=== PATIENT | female | born 1985 ===

== ENCOUNTER 2022-01-02 05:41 | Day surgery (SDC) | payer BC ==
[~2022-01-02] VITALS: Ht 152.4 cm; Wt 51.7 kg
[2022-01-02 06:07] VITALS: BP 108/52; PULSE 72; TEMP 98.6
[2022-01-02] MEDS ORDERED: NITRO-BID22 TOP (06:21)
[2022-01-02] MEDS ORDERED: MOBIC15 MG PO (06:21)
[2022-01-02] MEDS ORDERED: FLEXERIL 1010 MG/TAB PO (06:21)
[2022-01-02] MEDS ORDERED: TRIAMC 0.1 454 TOP (06:21)
[2022-01-02 08:10] VITALS: BP 102/57; PULSE 70; TEMP 97.1
[2022-01-02 08:25] VITALS: BP 100/59; PULSE 65
[2022-01-02 08:40] VITALS: BP 104/64; PULSE 66
--- NOTE | 2022-01-02 09:12 | NUR ---
0810: Patient arrived back into [facility] from [facility]. Patient is alert and oriented. Vital signs stable. Report received from ANGEILKA Soni and MARYANN Hernandez. Patient requesting water and crackers. Denies pain and nausea. Call light left within reach. MD to call patient's significant other. 0825: Patient vitally stable. Tolerating food and drink well. Denies pain or nausea at this time. 0845: IV removed without complications. Patient able to get dressed independently and use restroom. 0900: Went through discharge instructions with patient. Offered to escort patient in wheelchair, patient refused, educated patient on increased fall risk today. Escorted to patient entrance via ambulation. Patient got into personal vehicle unassisted and left in the care of her significant other, Drake.
== END 2022-01-02 09:05 | disposition home or self-care (01) ==
LOC: SDCO 05:41
DX: K64.0 First degree hemorrhoids (principal)
CPT/HCPCS: J2704; J3010; J7030